=== PATIENT | female | born 1970 | race Two or more races ===

== ENCOUNTER 2024-05-05 08:10 | Day surgery (SDC) | payer MEDICAID, SELFPAY ==
--- NOTE | 2024-05-04 07:26 | EKG_ITS ---
[facility] Test Date: 2024-05-04 Pat Name: AYDEN ÁLVAREZ Department: Room: - Gender: Female Component Assembler: RTSJC : 1970 Requested By: Abe Boone Order Number: [id number] Reading MD: Abe Boone Measurements Intervals [place] Rate: 76 P: 45 MD: 137 QRS: 34 QRSD: 81 T: 13 QT: 349 QTc: 394 Interpretive Statements SINUS RHYTHM No previous ECG available for comparison /store/S0/[id number]/ecg/[id number]
[2024-05-04 12:40] LABS: Collection Type, Urine Clean Catch
[2024-05-04 13:13] LABS: Basophils % (Auto) 0 % (0-2.5); Eosinophils # (Auto) 0.1 Thou/mm3 (0.0-0.5); Eosinophils % (Auto) 2 % (0-10); Hematocrit 42.8 % (36.0-46.0); Hemoglobin 13.8 g/dL (12.0-16.0); Immature Granulocytes % (Auto) 0 % (0-0); Immature Granulocytes Auto 0.02 Thou/mm3 (0.00-0.00); Lymphocytes # (Auto) 1.8 Thou/mm3 (1.0-4.8); Lymphocytes % (Auto) 27 % (10-50); Mean Corpuscular HGB Conc 32.2 g/dl (31.0-37.0); Mean Corpuscular Hemoglobin 27.3 pg (25.0-35.0); Mean Corpuscular Volume 85 fL (80-100); Monocytes # (Auto) 0.6 Thou/mm3 (0.0-0.8); Monocytes % (Auto) 9 % (0-12); Neutrophils # (Auto) 4.2 Thou/mm3 (1.8-7.7); Neutrophils % (Auto) 61 % (37-80); Nucleated Red Blood Cell % 0 /100 WBC (0); Platelet Count 317 Thou/mm3 (140-440); RDW Standard Deviation 40.9 fL (36.4-46.3); Red Blood Count 5.06 Miln/mm3 (4.00-5.20); White Blood Count 6.9 Thou/mm3 (3.6-11.0)
[2024-05-04 13:16] LABS: Partial Thromboplastin Time 29.6 Seconds (22.0-36.0); Prothrombin Time 11.1 Seconds (9.0-12.2)
[2024-05-04 13:18] LABS: Bilirubin,Urine Negative (Negative); Blood,Urine 1+ (Negative); Color,Urine Yellow (Lt Yel-Yel); Glucose, Urine Negative (Negative); Ketones,Urine Negative (Negative); Leukocyte Esterase,Urine Positive (Negative); Nitrite,Urine Positive (Negative); PH,Urine 6.5 (5.0-7.0); Protein,Urine 1+ (Neg - Trace); RBC,Urine 37 /hpf (0-3); Specific Gravity,Urine 1.019 (1.001-1.035); Squamous Epithelial Cell,Urine 4 /hpf (0-5); Urobilinogen,Urine Negative mg/dL (0.0-1.0); WBC,Urine 710 /hpf (0-5)
[2024-05-04 13:25] LABS: HCG Qualitative,Urine Negative
[2024-05-04 13:26] LABS: Clarity,Urine Cloudy (Clear/Hazy)
[2024-05-04 13:54] LABS: Alanine Aminotransferase 30 U/L (10-49); Albumin, Serum 4.4 gm/dL (3.5-5.0); Albumin/Globulin Ratio 1.4 (1.2-2.2); Alkaline Phosphatase 99 U/L (46-116); Anion Gap 8 (7-16); Aspartate Amino Transferase 31 U/L (0-34); BUN/Creatinine Ratio 11 Ratio (12-20); Bilirubin,Total 0.6 mg/dL (0.3-1.2); Blood Urea Nitrogen 10 mg/dL (9-23); Calcium 9.8 mg/dL (8.3-10.6); Calcium (Corrected) 9.8 mg/dL (8.5-10.1); Carbon Dioxide 28.9 mMol/L (20.0-31.0); Chloride 102 mMol/L (98-107); Creatinine (Component) 0.9 mg/dL (0.6-1.3); Globulin 3.2 gm/dL (2.3-3.5); Glucose 74 mg/dL (74-106); Osmolality,Calculated 275 (275-295); Sodium 139 mMol/L (136-145); Total Protein 7.6 gm/dL (5.7-8.2); eGFR > 60 See Note
--- NOTE | 2024-05-04 21:34 | PD.SURHP ---
HPI Date of Admission May 05 2024 Chief Complaint Chief Complaint: Patient with GERD and needs screening colonoscopy. HPI This years old female is brought to endoscopy suite to evaluate the complaints of significant GERD unresponsive to PPI medications. She will undergo Upper GI endoscopy and she will also undergo screening colonoscopy. Informed consent was obtained. Past Medical History Past Medical History NEUROLOGIC: Negative Neurological Disorders CARDIAC: Positive Cardiac Disorders and Hypertension; Negative Congestive Heart Failure RESPIRATORY: Negative Respiratory Disorders or Chronic Obstructive Pulmonary Disease (COPD) GASTROINTESTINAL: Negative Gastrointestinal Disorders GENITOURINARY: Negative Genitourinary Disorders or Renal Disease MUSCULOSKELETAL: Negative Musculoskeletal Disorders ENT: Negative History of ENT Problems ENDOCRINE: Positive Endocrine Disorders and Hypothyroidism; Negative Diabetes Mellitus Type 1 Social History SMOKING STATUS: Never smoker Travel History EBOLA RISK: No Meds Home Medications and Allergies Home Medications ?Medication ?Instructions ?Recorded ?Confirmed ?Type Levothyroxine * (SYNTHROID *) 100 mcg PO ACBR #0 tabs 06/27/16 History RITE START VITAMIN 1 tab PO QDAY ##0 06/28/16 History VERATROL 100 mg PO QDAY ##0 06/28/16 History calcium carbonate (Oyster Shell 1 tab PO QDAY ##0 06/28/16 History Calcium) ferrous sulfate 325 mg (65 mg 325 mg PO QDAY ##0 06/28/16 History iron) tablet Allergies Allergy/AdvReac Type Severity Reaction Status Date / Time NKA* Allergy Uncoded 06/28/16 08:49 Exam Constitutional Constitutional: no acute distress Routine HEENT Exam Head: Present normocephalic Eye: Present EOMI and PERRL ENT: Present mucous membranes moist Routine Neck Exam Neck: Present supple and trachea midline Routine Chest/Breast/Axilla Exam Chest wall: Absent tenderness or mass Routine Respiratory Exam Respiratory: Present chest non-tender, lungs clear, normal breath sounds and no resp distress; Absent respiratory distress Routine Cardiovascular Exam Cardiovascular: Present RRR Routine Abdominal Exam Abdominal: Present soft and normoactive bowel sounds Routine Extremities Exam Extremities: Present full ROM Routine Skin Exam Skin: Present intact, dry and warm Routine Neurological Exam Neurological: Present alert, oriented X3 and CN II-XII intact Routine Psychiatric Exam Psychiatric: Present normal affect and normal thought process Results Results: Laboratory Laboratory results: results reviewed Assessment & Plan Problem List (1) GERD (gastroesophageal reflux disease): Status: Acute (2) Encounter for screening colonoscopy: Status: Acute Plan Upper GI endoscopy and screening colonoscopy. possible biopsy possible polypectomy. Risk benefits and alternatives are discussed with the patient and informed consent is obtained. Quality Measures Quality Measures none
[2024-05-05] VITALS (24 sets, daily range): BP systolic 94–135; BP diastolic 52–104; PULSE 56–93; RESP 13–100; TEMP 36.2–36.5; O2SAT 94–100; BMI 26.5
--- NOTE | 2024-05-05 09:45 | SUR.PREOP ---
AT PATIENT BEDSIDE WITH [facility] TELEPHONE PERSONAL INJURY ATTORNEY ELOISE ID#[id number] ON THE LINE. SPEAKS TO PATIENT REGARDING COLONIC PREP. PATIENT'S QUESTIONS ANSWERED BY .
[2024-05-05] MEDS: ONDANSETRON INJ 2 MG/ML INJ 2 ML 4 MG IV (10:07)
[2024-05-05] MEDS: DiphenhydrAMINE INJ 50 MG/ML VIAL 25 MG IV (10:52)
[2024-05-05] MEDS: fentaNYL CIT INJ 50 mCg/ML AMP 2ML (ASD USE ONLY) IV (11:20)
[2024-05-05] MEDS: MEPERIDINE INJ 25 MG/ML VIAL (ASD USE ONLY) IV (11:21)
[2024-05-05] MEDS: MIDAZOLAM INJ 1 MG/ML VIAL 2 ML (ASD USE ONLY) 2 MG IV (11:22)
== END 2024-05-05 12:26 | disposition home or self-care (01) ==
PROVIDERS: PCP Physician Assistant; Referring Provider Specialist; Visit Provider Specialist
PROC: 0DBE8ZX Excision of Large Intestine, Via Natural or Artificial Opening Endoscopic, Diagnostic (ICD-10-PCS; CPT 45380; principal; 2024-05-05 09:15)
PROC: (CPT 43239; 2024-05-05 09:15)
DX: Z12.11 Encounter for screening for malignant neoplasm of colon (principal); K21.9 Gastro-esophageal reflux disease without esophagitis; I10 Essential (primary) hypertension; E03.9 Hypothyroidism, unspecified; K60.2 Anal fissure, unspecified; D12.4 Benign neoplasm of descending colon; K64.9 Unspecified hemorrhoids; K57.30 Diverticulosis of large intestine without perforation or abscess without bleeding; K21.00 Gastro-esophageal reflux disease with esophagitis, without bleeding; K44.9 Diaphragmatic hernia without obstruction or gangrene
CPT/HCPCS: 45385; 43235; 36415; 80053; 81001; 81025; 85025; 85610; 85730; 93005; J1200; J2175; J2250; J2405; J3010

== ENCOUNTER → 2024-05-22 | Outpatient (CLI) | payer MEDICAID, SELFPAY ==
--- NOTE | 2024-05-22 11:30 | XR_ITS ---
Examination: CT abdomen and pelvis without contrast. Coronal 3-D reconstructions. Sagittal 2-D reconstructions. Date and time of exam:May 22, 2024 1220 hours INDICATIONS: Left flank and back pain beginning 3 months ago, large left renal staghorn calculus on renal sonogram January 06, 2024 CTDI: vol (mGy): 8.93 DLP: (mGycm): 442 Technique: Axial images of the abdomen have been obtained, 3 mm slice thickness Intravenous contrast material has not been administered. Low dose protocols were performed. One or more of the following dose reduction techniques were used; automated exposure control, adjustment of the mA and/or KV according to patient size, use of iterative reconstruction technique. Findings: No focal liver or splenic lesions Contracted gallbladder No pancreatic or adrenal mass Very large staghorn calculi replacing the left renal collecting system including 28 mm calculus in the left renal pelvis extending to the ureteropelvic junction Minimal hydronephrosis Significant left renal scarring Aorta normal size Normal appendix No bowel obstruction No pelvic mass No bladder mass Mild lumbar spondylosis IMPRESSION: Very extensive staghorn calculi replacing the left renal collecting system including 28 mm calculus in the left renal pelvis extending to the left ureteropelvic junction No significant hydronephrosis
== END | disposition home or self-care (01) ==
PROVIDERS: PCP Physician Assistant Medical; Visit Provider Physician Assistant
DX: N20.0 Calculus of kidney (principal)
CPT/HCPCS: 74176

== ENCOUNTER → 2024-07-15 | Outpatient (CLI) | payer MEDICAID, SELFPAY ==
--- NOTE | 2024-07-15 12:30 | XR_ITS ---
Examination: Nuclear medicine kidney imaging flow and function multiple studies Exam date and time: July 15, 2024 1512 hours INDICATIONS: Large staghorn calculi left kidney TECHNIQUE AND FINDINGS: Intravenous administration 10.4 mCi technetium 99m MAG3, 50 mg Lasix administered at 20 minutes No flow or function left kidney Normal flow and function right kidney Lasix effect IMPRESSION: No flow or function left kidney
[2024-07-15 13:12] LABS: HCG Qualitative,Urine Negative
[2024-07-15 14:04] VITALS: BP 116/75; PULSE 75
[2024-07-15] MEDS: FUROSEMIDE INJ 10 MG/ML 4ML VIAL 50 MG IVP (14:04)
== END | disposition home or self-care (01) ==
LOC: SNUC 12:28
PROVIDERS: Referring Provider Physician Assistant Medical; Visit Provider Physician Assistant Medical
DX: N20.0 Calculus of kidney (principal)
CPT/HCPCS: 78709; 81025; A9562; J1940

== ENCOUNTER → 2025-01-06 | Outpatient (CLI) | payer MEDICAID, SELFPAY ==
--- NOTE | 2025-01-06 10:47 | XR_ITS ---
Examination: Shoulder,right, 3 views Technique: Shoulder AP internal rotation, AP external rotation, Y view shoulder, 3 views Exam date and time :January 06, 2025 1058 hours INDICATIONS: Patient fell 4 days ago with into the shoulder, shoulder pain. FINDINGS: Moderate narrowing glenohumeral joint No shoulder fracture or dislocation IMPRESSION: Moderate narrowing glenohumeral joint
== END | disposition home or self-care (01) ==
LOC: CDIM 10:25
PROVIDERS: PCP Nurse Practitioner; Referring Provider Nurse Practitioner; Visit Provider Nurse Practitioner
DX: M25.811 Other specified joint disorders, right shoulder (principal); S49.91XA Unspecified injury of right shoulder and upper arm, initial encounter; W19.XXXA Unspecified fall, initial encounter
CPT/HCPCS: 73030

== ENCOUNTER → 2025-03-12 | Outpatient (CLI) | payer MEDICAID, SELFPAY ==
--- NOTE | 2025-03-12 11:15 | XR_ITS ---
Examination: Screening digital mammography, bilateral Computer aided detection 3-D breast Tomosynthesis, bilateral Date and time of exam: March 12, 2025, 11:00 a.m., compared to mammograms dating to October 05, 2016 Indication: Screening Technique: Nonmagnified MLO, CC views of the breasts to been obtained, reconstructed from 3-D Tomosynthesis images. R2 computer aided detection program utilized for evaluation of suspicious masses and/or abnormal calcifications. 3-D Tomosynthesis images obtained. Findings: Scattered areas of fibroglandular density. Stable focal asymmetry upper outer right breast Scar formation inner left breast No interval suspicious masses Impression: BI-RADS category II: Benign Findings. Recommend 1 year follow-up mammogram.
== END | disposition home or self-care (01) ==
LOC: CDIM 10:51
PROVIDERS: Referring Provider Nurse Practitioner; Visit Provider Nurse Practitioner
DX: Z12.31 Encounter for screening mammogram for malignant neoplasm of breast (principal); R92.323 Mammographic fibroglandular density, bilateral breasts
CPT/HCPCS: 77063; 77067

== ENCOUNTER 2025-04-26 10:05 | Outpatient (RCR) | payer MEDICAID, SELFPAY ==
--- NOTE | 2025-04-26 10:43 | PT.OIERPT ---
PT OP Initial Eval Patient Information Outpatient Physical Therapy Treatment Date: 04/26/25 Visit Reasons: pain in RT shoulder Medical Diagnosis: Right Shoulder Pain Treatment Dx #1: Right Shoulder Pain Treatment Dx #2: Right Shoulder Weakness Start of Care: 04/26/25 Date of Onset: 3 months ago Smoking Status Smoking Status: Never smoker Initial Assessment Subjective: Pt is a 54 y/o female reports of chronic right shoulder pain (07/06) worsening after she fell on it ~ 3 months ago. Pt's most recent xray showed moderate OA. No MRI has been done thus far. Pt has limitation with overhead motions, working out, chores, self care, recreational activities, and cooking/cleaning. Objective: Right Shoulder AROM Flexion: 180 deg Abduction: 180 deg External Rotation: 80 deg Internal Rotation: 70 deg Right Shoulder MMTs: grossly 3+/5 Right Scapula MMTs: grossly 3+/5 Assessment: Pt demonstrate right shoulder pain with weakness consistent with shoulder OA leading to difficulty with ADLs. Pt will attempt physical therapy if pain persist Pt will be refer back to provider for further consultation. Short Term and Postdoctoral Research Associate Goals 1) Increase right shoulder AROM WNL in 6 wks to be able to resume working out 2) Decrease shoulder pain to 1/10 in 6 wks to be able to perform recreational activities 3) Increase right shoulder MMTs grossly to 4/5 in 6 wks to be able to perform overhead motions 4) Increase right scapula MMTs grossly to 4-/5 in 6 wks to be able to cook and clean 5) Indep with HEP Treatment Plan 1) Manual Therapy 2) Therapeutic Activities 3) Therapeutic Exercises 4) Modalities (ice, heat) Frequency and Duration: 2 x wk for 6 wks Certification Dates: 04/26/25 to 07/25/25 Procedure Charges OP PT Eval Mod Complex 30 minutes: Yes
== END 2025-04-28 23:59 | disposition home or self-care (01) ==
LOC: CPTX 10:05
DX: M25.511 Pain in right shoulder (principal); R53.1 Weakness
CPT/HCPCS: 97162